=== PATIENT | male | born 1985 | race Caucasian/White ===

== ENCOUNTER 2021-02-06 23:53 | Emergency (ER) | payer OTHER ==
[2021-02-07] MEDS ORDERED: Acetaminophen/HYDROcodone 325-5 MG Tab PO ONE (00:47)
[2021-02-07] MEDS ORDERED: Bupivacaine 0.5% 10 ML SDV INJECT ONE (00:47)
[2021-02-07] MEDS ORDERED: Lidocaine 1% with EPINEPHrine 1:100,000 20 ML MDV INJECT ONE (00:47)
--- NOTE | 2021-02-07 00:51 | EDM.PDOC ---
ED HPI GENERAL MEDICAL PROBLEM - General Chief Complaint: Laceration Stated Complaint: RT ARM WORK INJURY Time Seen by Provider: 02/07/21 00:37 Source of Information: Reports: Patient, Other (Work supervisor delivery department) History Limitations: Reports: No Limitations - History of Present Illness INITIAL COMMENTS - FREE TEXT/NARRATIVE: Mr. Lopez is a very pleasant 35-year-old gentleman who now presents the ED after his right arm got crushed between 2 pumps in a mud motor around 23:00, at work. He suffered a laceration to his medial upper arm. He is otherwise uninjured. Other than applying a dressing, no treatment was given prior to arrival to the ED. 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 Prior to petey's injury, the patient denies having a recent fever, chills, sore throat, ear pain, nasal or sinus congestion, cough, dyspnea, chest pain, palpitations, nausea, vomiting, constipation, diarrhea, abdominal pain, urinary symptoms, recent weight gain or weight loss, recent bloody bowel movements or black bowel movements, recent joint aches, headaches, or rashes. The patient does not have a PCP. He has received 2 Pfizer COVID vaccinations plus an influenza vaccination this season. Right Upper Arm Pain Score (Numeric/FACES): 4 - Related Data Allergies Allergy/AdvReac Type Severity Reaction Status Date / Time No Known Allergies Allergy Verified 02/07/21 00:22 Home Meds: Home Meds . [No Known Home Meds] 02/07/21 [History] Past Medical History Gastrointestinal History: Reports: GERD Endocrine/Metabolic History: Reports: Obesity/BMI 30+ - Past Surgical History HEENT Surgical History: Reports: Oral Surgery (dental extractions), Tonsillectomy Social & Family History - Tobacco Use Tobacco Use Status *Q: Current Some Day Tobacco User Years of Tobacco use: 11 Tobacco Use Comment: Started smoking 2009 - Alcohol Use Alcohol Use History: Yes Alcohol Use Frequency: Socially - Recreational Drug Use Recreational Drug Use: No - Living Situation & Occupation Living situation: Reports: , with Spouse, with Family (3 kids) Occupation: Employed ([employer]) ED ROS GENERAL - Review of Systems Review Of Systems: Comprehensive ROS is negative, except as noted in HPI. ED EXAM, SKIN/RASH Exam: See Below Exam Limited By: No Limitations General Appearance: Alert, WD/WN, No Apparent Distress Extremities: Other (There is an approximately 5 cm linear laceration to the medial aspect of the right upper arm. The wound is bleeding, but not excessively. No other visible injury to the right upper extremity. Neurovascular status of the right upper extremity is intact.) ED SKIN PROCEDURES - Laceration/Wound Repair Right Arm Appearance: Subcutaneous, Irregular, Clean Distal NVT: Neuro & Vascular Intact, No Tendon Injury Anesthetic Type: Local Local Anesthesia - Lidocaine (Xylocaine): 1% with EPI (50:50 mixture) Local Anesthesia - Bupivicaine (Marcaine): 0.5% Plain (50:50 mixture) Local Anesthetic Volume: 2cc Skin Prep: Providone-Iodine (Betadine) Exploration/Debridement/Repair: Wound Explored, In a Bloodless Field, Explored to Base, No Foreign Material Found Closed with: [place]/Wound length In cm: 5.0 # of Sutures: 11 Drain Placement: No Sterile Dressing Applied: Nurse Tetanus Status Addressed: Yes Complications: No Course - Vital Signs Last Recorded V/S: Last Vital Signs Temp 36.3 C 02/07/21 00:14 Pulse 73 02/07/21 00:14 Resp 16 02/07/21 00:14 BP 140/94 H 02/07/21 00:14 Pulse Ox 97 02/07/21 00:14 - Orders/Labs/Meds Orders: Active Orders 24 hr Category Date Time Status Elbow Min 3V Rt [CR] Stat Exams 02/07/21 00:47 Taken Forearm 2V Rt [CR] Stat Exams 02/07/21 00:47 Taken Humerus Rt [CR] Stat Exams 02/07/21 00:46 Taken Meds: Medications Discontinued Medications Generic Name Dose Route Start Last Admin Trade Name Zhangq PRN Reason Stop Dose Admin Hydrocodone Bitart/Acetaminophen 2 tab 02/07/21 00:47 02/07/21 01:03 Acetaminophen/Hydrocodone 325-5 Mg Tab PO 02/07/21 00:48 2 tab ONETIME ONE Administration Bupivacaine HCl 10 ml 02/07/21 00:47 02/07/21 01:03 Bupivacaine 0.5% 10 Ml Sdv INJECT 02/07/21 00:48 10 ml ONETIME ONE Administration Lidocaine/Epinephrine 20 ml 02/07/21 00:47 02/07/21 01:03 Lidocaine 1% With Epinephrine 1:100,000 20 Ml Mdv INJECT 02/07/21 00:48 20 ml ONETIME ONE Administration - Re-Assessments/Exams Free Text/Narrative Re-Assessment/Exam: 02/07/21 00:48 Emmy MCKAY is irrigating the wound. I have ordered 2 tablets of [place] along with x-rays of the right humerus, elbow, and forearm. 02/07/21 01:21 3-view radiographs of the right humerus appear to be grossly normal, with no fractures identified. Formal read per the Radiologist pending. 3-view radiographs of the right elbow appear to be grossly normal, with no fractures or dislocations identified. Formal read per the Radiologist pending. 2-view radiographs of the right forearm appear to be grossly normal, with no fractures identified. Formal read per the Radiologist pending. 02/07/21 01:42 After the wound was copiously irrigated, I anesthetized the wound with a 50:50 mixture of bupivacaine 0.5% without epinephrine and lidocaine 1% with epinephrine, to good anesthetic effect. The wound was then closed with 11 christy. The patient tolerated the procedure well. The christy should be ready for removal in 7 days. The patient will be discharged home with a note for restricted work. Departure - Departure Time of Disposition: 01:43 Disposition: Home, Self-Care 01 Condition: Good Clinical Impression: Laceration of right upper arm - Discharge Information *PRESCRIPTION DRUG MONITORING PROGRAM REVIEWED*: Not Applicable *COPY OF PRESCRIPTION DRUG MONITORING REPORT IN PATIENT PIERRE: Not Applicable Referrals: PCP,Not In Area [Primary Care Provider] - Forms: ED Department Discharge, ED Return to Work/School Form Additional Instructions: You were seen in the emergency room after your right arm got crushed between 2 pipes, causing a laceration to your upper right arm. Work-up in the ER included x-rays of your upper right arm, your right elbow, and your right forearm, all of which were normal, with no broken bones or other injuries seen. The laceration was closed with 11 christy in the ER. Keep the wound clean with ordinary soap and water when you bathe. Pat dry, then apply a sterile bandage, daily. Do not apply antibiotic ointment. The christy should be ready for removal by 02/14/2021. They can be removed at the walk-in clinic or in the ER. They require a special tool to remove, so do not try to remove them yourself. It is highly unlikely that the wound will become infected, but if the wound develops significant redness, swelling, drainage, or inordinate pain, please do not hesitate to return to the ER for reevaluation. A note to return to work has been provided. Sepsis Event Note (ED) - Evaluation Sepsis Screening Result: No Definite Risk - Focused Exam Vital Signs: Vital Signs Temp Pulse Resp BP Pulse Ox 02/07/21 00:14 36.3 C 73 16 140/94 H 97 - My Orders Last 24 Hours: My Active Orders 02/07/21 00:46 Humerus Rt [CR] Stat 02/07/21 00:47 Elbow Min 3V Rt [CR] Stat Forearm 2V Rt [CR] Stat - Assessment/Plan Last 24 Hours: My Active Orders 02/07/21 00:46 Humerus Rt [CR] Stat 02/07/21 00:47 Elbow Min 3V Rt [CR] Stat Forearm 2V Rt [CR] Stat
--- NOTE | 2021-02-07 07:35 | CR ---
Right humerus: 2 views of the right humerus were obtained. Comparison: No prior humerus study is available. Soft tissue swelling is seen. No fracture or other bony abnormality is appreciated. Impression: 1. Soft tissue swelling. 2. No bony abnormality is seen on right humerus study. Diagnostic code #2
--- NOTE | 2021-02-07 07:36 | CR ---
Right forearm: AP and lateral views of the right forearm were obtained. Comparison: No prior forearm study is available. Soft tissue swelling is seen. No acute fracture or other bony abnormality is seen. Impression: 1. Soft tissue swelling. 2. No bony abnormality is appreciated. Diagnostic code #2
--- NOTE | 2021-02-07 07:36 | CR ---
Right elbow: 4 views of the right elbow were obtained. Comparison: No previous elbow study is available. Joint spaces are preserved. Soft tissue injury is seen medially. No joint effusion is seen. No fracture, dislocation or other bony abnormality is appreciated. Impression: 1. Soft tissue injury is seen medially. 2. No acute bony abnormality is seen. Diagnostic code #2
== END 2021-02-07 02:00 | disposition home or self-care (01) ==
LOC: JD.ED 23:53 → EDBD 23:53 → JD.ED 02-07 02:00
DX: S41.111A Laceration without foreign body of right upper arm, initial encounter (principal); E66.9 Obesity, unspecified; Z68.41 Body mass index [BMI] 40.0-44.9, adult; Z72.0 Tobacco use; W23.0XXA Caught, crushed, jammed, or pinched between moving objects, initial encounter
CPT/HCPCS: 12002; 73060; 73080; 73090; 99283; A9270; J3490